=== PATIENT | female | born 1985 | race Caucasian/White ===

== ENCOUNTER 2023-04-04 21:35 | Observation (INO) | payer SELFPAY ==
[2023-04-04 23:53] LABS: Urine Bacteria NONE SEEN /hpf (None Seen); Urine Blood TRACE /uL (Negative); Urine Specific Gravity 1.013 (1.001-1.035); Urine WBC 4 /hpf (0 - 5)
[2023-04-05] MEDS ORDERED: CEPH250C PO (00:46)
== END 2023-04-05 01:08 | disposition home or self-care (01) ==
LOC: LDRP 21:35 → EDBD 21:35
PROVIDERS: ADMIT Obstetrics & Gynecology; ATTEND Obstetrics & Gynecology
DX: O46.93 Antepartum hemorrhage, unspecified, third trimester (principal); O26.893 Other specified pregnancy related conditions, third trimester; N89.8 Other specified noninflammatory disorders of vagina; Z3A.34 34 weeks gestation of pregnancy
CPT/HCPCS: 59025; 76815; 76817; 81001; 81002; 94760; G0378

== ENCOUNTER 2023-04-29 13:03 | Observation (INO) | payer BC, OTHER ==
[~2023-04-29] VITALS: Ht 160 cm; Wt 84.8 kg
[~2023-04-29 13:03] MED LIST: CEPH250C PO
[2023-04-29 13:42] LABS: Basophils # (auto) 0 10 ^3/uL (0-0.2); Basophils % (auto) 0.3 % (0.0-2.0); Eosinophils # (auto) 0 10 ^3/uL (0-0.8); Eosinophils % (auto) 0.6 % (0.0-7.0); Hematocrit 38.6 % (36.0-46.0); Hemoglobin 12.8 g/dL (12.2-16.2); Lymphocytes # (auto) 1.5 10 ^3/uL (0.4-5.4); Lymphocytes % (auto) 19.1 % (10.0-50.0); Mean Corpuscular Hemoglobin 29.6 pg (28.0-32.0); Mean Corpuscular Hgb Conc. 33.3 g/dL (32.0-36.0); Monocytes # (auto) 0.4 10 ^3/uL (0-1.3); Monocytes % (auto) 5.3 % (0.0-12.0); Neutrophils # (auto) 5.7 10 ^3/uL (1.6-8.6); Neutrophils % (auto) 74.7 % (37.0-80.0); Nucleated Red Blood Cells % 0.1 %; Red Blood Cells 4.33 10^6/uL (4.0-5.20); Red Cell Distribution Width 15.4 % (11.8-14.3); White Blood Cell 7.6 10^3/uL (4.4-10.8)
[2023-04-29 13:53] LABS: Urine Bacteria NONE SEEN /hpf (None Seen); Urine Blood Negative /uL (Negative); Urine Clarity Clear (Clear); Urine Color Colorless (Yellow); Urine Mucus FEW (None Seen); Urine Protein, UAD Negative (Negative); Urine Specific Gravity 1.011 (1.001-1.035); Urine Urobilinogen Normal (Negative); Urine WBC 3 /hpf (0 - 5); Urine pH 6.5 (5.0-8.0)
[2023-04-29 13:56] LABS: INR 0.93 (0.9-1.15); Partial Thromboplastin Time 25.7 SEC (24.5-34.5); Prothrombin Time 9.8 sec (9.3-11.8)
[2023-04-29 14:06] LABS: Albumin 2.7 g/dL (3.4-5.0); Calcium 8.4 mg/dL (8.5-10.1); Potassium 3.4 mmol/L (3.5-5.1)
[2023-04-29 14:10] LABS: BUN/Creatinine Ratio 9.3 (10.0-20.0); Bilirubin, Total 0.2 mg/dL (0.2-1.0); Total Protein 6.5 g/dL (6.4-8.2); Uric Acid 3.2 mg/dL (2.6-6.0)
[2023-04-29 14:10] LABS: Protein, Urine 17.6 mg/dL (0.0-11.9); Urine Protein/Creatinine Ratio 0.38
== END 2023-04-29 14:44 | disposition home or self-care (01) ==
LOC: LDRP 13:03
PROVIDERS: ADMIT Obstetrics & Gynecology; ATTEND Obstetrics & Gynecology
DX: O26.893 Other specified pregnancy related conditions, third trimester (principal); R03.0 Elevated blood-pressure reading, without diagnosis of hypertension; Z3A.38 38 weeks gestation of pregnancy; Z79.899 Other long term (current) drug therapy
CPT/HCPCS: 36415; 59025; 80053; 81001; 81002; 82570; 84156; 84550; 85025; 85610; 85730; 94760; G0378

== ENCOUNTER 2023-05-02 07:51 | Observation (INO) | payer BC ==
[2023-05-02] MEDS ORDERED: PREN-96 PO ×2 (08:18)
[2023-05-02 08:42] LABS: Urine Bacteria FEW /hpf (None Seen); Urine Blood Negative /uL (Negative); Urine Clarity Clear (Clear); Urine Color Colorless (Yellow); Urine Protein, UAD Negative (Negative); Urine Specific Gravity 1.008 (1.001-1.035); Urine Urobilinogen Normal (Negative); Urine WBC 3 /hpf (0 - 5); Urine pH 6.5 (5.0-8.0)
[2023-05-02 08:52] LABS: Protein, Urine 12.4 mg/dL (0.0-11.9)
[2023-05-02 09:03] LABS: Protein, Urine 12.9 mg/dL (0.0-11.9); Urine Protein/Creatinine Ratio 0.37
== END 2023-05-02 10:12 | disposition home or self-care (01) ==
LOC: LDRP 07:51
PROVIDERS: ADMIT Obstetrics & Gynecology; ATTEND Obstetrics & Gynecology
DX: O13.3 Gestational [pregnancy-induced] hypertension without significant proteinuria, third trimester (principal); Z3A.39 39 weeks gestation of pregnancy
CPT/HCPCS: 59025; 81001; 81002; 82570; 84156; G0378

== ENCOUNTER 2023-05-02 18:54 | Inpatient (IN) | payer BC ==
[~2023-05-02] VITALS: Ht 160 cm; Wt 84.8 kg
[~2023-05-02 18:54] MED LIST changes: +PREN-96 PO
[2023-05-02] MEDS ORDERED: CARBOPROST TROMETHAMINE 250 MCG/1ML VIAL IM PRN (19:15)
[2023-05-02] MEDS ORDERED: LIDOCAINE 2%HCL (LOCAL ANESTH.) INJ 20ML MDV IJ PRN (19:15)
[2023-05-02] MEDS ORDERED: LACT. RINGERS/OXYTOCIN 20UNITS 500 ML IV ONE ×2 (19:15→19:45)
[2023-05-02] MEDS ORDERED: miSOPROStol 100 mcg TAB PR PRN (19:15)
[2023-05-02] MEDS ORDERED: miSOPROStol 100 mcg TAB SL PRN (19:15)
[2023-05-02] MEDS ORDERED: PROMETHAZINE HCL 25 MG/ML 1ML IV PRN (19:15)
[2023-05-02 19:31] LABS: Basophils # (auto) 0.1 10 ^3/uL (0-0.2); Basophils % (auto) 0.9 % (0.0-2.0); Eosinophils # (auto) 0 10 ^3/uL (0-0.8); Eosinophils % (auto) 0.5 % (0.0-7.0); Hematocrit 38.7 % (36.0-46.0); Hemoglobin 12.9 g/dL (12.2-16.2); Lymphocytes # (auto) 1.8 10 ^3/uL (0.4-5.4); Lymphocytes % (auto) 23.7 % (10.0-50.0); Mean Corpuscular Hemoglobin 29.9 pg (28.0-32.0); Mean Corpuscular Hgb Conc. 33.5 g/dL (32.0-36.0); Mean Corpuscular Volume 89.3 fL (80.0-100.0); Monocytes # (auto) 0.6 10 ^3/uL (0-1.3); Monocytes % (auto) 7.5 % (0.0-12.0); Neutrophils % (auto) 67.4 % (37.0-80.0); Nucleated Red Blood Cells % 0.1 %; Red Blood Cells 4.33 10^6/uL (4.0-5.20); Red Cell Distribution Width 15.1 % (11.8-14.3); White Blood Cell 7.5 10^3/uL (4.4-10.8)
[2023-05-02 19:47] LABS: Albumin 2.8 g/dL (3.4-5.0); Calcium 8.2 mg/dL (8.5-10.1); Potassium 3.8 mmol/L (3.5-5.1)
[2023-05-02 19:48] LABS: INR 0.96 (0.9-1.15); Partial Thromboplastin Time 26.5 SEC (24.5-34.5); Prothrombin Time 10.1 sec (9.3-11.8)
[2023-05-02 19:53] LABS: Bilirubin, Total 0.2 mg/dL (0.2-1.0); Total Protein 6.7 g/dL (6.4-8.2); Uric Acid 3.6 mg/dL (2.6-6.0)
[2023-05-02 20:59] LABS: Urine Bacteria NONE SEEN /hpf (None Seen); Urine WBC 6 /hpf (0 - 5)
[2023-05-02 21:07] LABS: Alcohol, Urine < 3.0 mg/dL (0-10); Amphetamine Screen, Urine NEGATIVE (NEGATIVE); Barbiturate Scree,Urine NEGATIVE (NEGATIVE); Benzodiazephine Screen, Urine NEGATIVE (NEGATIVE); Cocaine Screen, Urine NEGATIVE (NEGATIVE); Opiate Scree,Urine NEGATIVE (NEGATIVE)
[2023-05-02 21:12] LABS: Urine Clarity CLEAR (Clear); Urine Color Yellow (Yellow); Urine Specific Gravity 1.015 (1.001-1.035)
[2023-05-02 21:13] LABS: Urine Protein, UAD Trace (Negative); Urine Urobilinogen Normal (Negative)
[2023-05-02 21:14] LABS: Urine Blood Trace /uL (Negative)
[2023-05-02 21:24] LABS: Cannabinoid Screen, Urine NEGATIVE (NEGATIVE); Phencyclidine Screen, Urine NEGATIVE (NEGATIVE)
[2023-05-02] MEDS: LACTATED RINGER'S 1,000 ML IV SCH (21:56)
[2023-05-03] MEDS: miSOPROStol 50 MCG per PRE-CUT 1/2 TAB PO PRN ×2 (00:01→04:00)
[2023-05-03] MEDS: DERMOPLAST 60ML BOTTLE TOP PRN (00:04)
[2023-05-03] MEDS: PHISODERM TOP SOLN 240ML BTL TOP PRN (00:05)
[2023-05-03] MEDS: WITCH HAZEL-GLYCERIN PAD TOP PRN (00:05)
[2023-05-03] MEDS: LACTATED RINGER'S 1,000 ML IV SCH ×3 (03:34→12:15)
[2023-05-03] MEDS ORDERED: LACT. RINGERS/OXYTOCIN 20UNITS 1,000 ML IV SCH (06:30)
[2023-05-03] MEDS ORDERED: TERBUTALINE SULFATE 1 MG/ML 1ML VIAL SC PRN (06:30)
[2023-05-03] MEDS ORDERED: NALOXONE HCL 0.4 MG/ML VIAL IV ONE (09:00)
[2023-05-03] MEDS ORDERED: LIDOCAINE HCL 2 %PF INJ 10ML AMP IJ ONE (09:00)
[2023-05-03] MEDS ORDERED: fentaNYL CITRATE 100 MCG/2 ML VL IV ONE (09:00)
[2023-05-03] MEDS ORDERED: ROPIVACAINE HCL 200 ML EPI SCH (09:00)
[2023-05-03] MEDS ORDERED: Lidocaine W-Epinephrine 1.5%-1:200,000 INJ 10ml Vial IJ ONE (09:00)
[2023-05-03] MEDS ORDERED: ePHEDrine SULFATE 50 MG/ML AMP IV ONE (09:00)
[2023-05-03] MEDS ORDERED: METHYLERGONOVINE MALEATE 0.2 MG/ML AMP IM ONE (16:41)
[2023-05-03] MEDS ORDERED: ACETAMINOPHEN 325 MG TAB PO PRN (17:15)
[2023-05-03 19:00] VITALS: BP 140/71; PULSE 100; RESP 18; TEMP 97.8
[2023-05-03 23:15] VITALS: BP 127/83; PULSE 87; RESP 18; TEMP 97.9
[2023-05-04 03:00] VITALS: BP 131/78; PULSE 80; RESP 18; TEMP 98
[2023-05-04 06:55] VITALS: BP 123/76; PULSE 81; RESP 16; TEMP 98.2; O2SAT 100
[2023-05-04] MEDS: IBUPROFEN 600 MG TAB PO PRN ×3 (07:54→22:21)
[2023-05-04 11:20] VITALS: BP 120/74; PULSE 77; RESP 16; TEMP 98.5; O2SAT 100
[2023-05-04 15:30] VITALS: BP 118/72; PULSE 70; RESP 16; TEMP 98.8; O2SAT 100
[2023-05-04 19:00] VITALS: BP 129/77; PULSE 78; RESP 16; TEMP 97.7
[2023-05-04 22:10] VITALS: BP 122/71; PULSE 77; RESP 16; TEMP 98.2
[2023-05-04] MEDS: DERMOPLAST 60ML BOTTLE TOP PRN (22:20)
[2023-05-04] MEDS: PHISODERM TOP SOLN 240ML BTL TOP PRN (22:21)
[2023-05-04] MEDS: WITCH HAZEL-GLYCERIN PAD TOP PRN (22:21)
[2023-05-05 07:06] LABS: RPR Non Reactive (Non Reactive)
[2023-05-06 19:06] LABS: Treponema pallidum Ab (FTA-Ab) Non Reactive (Non Reactive)
== END 2023-05-04 22:20 | disposition home or self-care (01) | DRG 807 ==
LOC: LDRP 18:54
PROVIDERS: ADMIT Obstetrics & Gynecology; ATTEND Obstetrics & Gynecology
PROC: 3E0P7VZ Introduction of Hormone into Female Reproductive, Via Natural or Artificial Opening (ICD-10-PCS; 2023-05-02)
PROC: 10E0XZZ Delivery of Products of Conception, External Approach (ICD-10-PCS; principal; 2023-05-03)
PROC: 10907ZC Drainage of Amniotic Fluid, Therapeutic from Products of Conception, Via Natural or Artificial Opening (ICD-10-PCS; 2023-05-03)
PROC: 3E0R3BZ Introduction of Anesthetic Agent into Spinal Canal, Percutaneous Approach (ICD-10-PCS; 2023-05-03)
PROC: 00HU33Z Insertion of Infusion Device into Spinal Canal, Percutaneous Approach (ICD-10-PCS; 2023-05-03)
PROC: 0HQ9XZZ Repair Perineum Skin, External Approach (ICD-10-PCS; 2023-05-03)
DX: O13.4 Gestational [pregnancy-induced] hypertension without significant proteinuria, complicating childbirth (principal); Z37.0 Single live birth; Z3A.39 39 weeks gestation of pregnancy; O70.0 First degree perineal laceration during delivery
CPT/HCPCS: 36415; 59025; 59409; 62282; 80053; 80307; 81001; 81002; 84550; 85025; 85610; 85730; 86592; 86850; 86900; 86901; 94760; 94762; 96360; 96361; 96365; 96366; G0378; J2590